=== PATIENT | male | born 1960 | race Caucasian/White ===

== ENCOUNTER 2022-08-30 06:54 | Emergency (ER) | payer MEDICAID ==
[~2022-08-30] VITALS: Ht 160 cm; Wt 72.6 kg
[2022-08-30 06:57] VITALS: BP 152/77
--- NOTE | 2022-08-30 07:06 | NUR ---
TO BED 2
== END 2022-08-30 08:36 | disposition home or self-care (01) ==
LOC: MED 06:54
DX: G62.9 Polyneuropathy, unspecified (principal)
CPT/HCPCS: 99282